=== PATIENT | female | born 1960 | race Caucasian/White ===

== ENCOUNTER 2017-11-07 23:04 | Emergency (ER) | payer MEDICARE, OTHER ==
[2017-11-08] MEDS ORDERED: ONDANSETRON 4 MG TAB.RAPDIS SL ONE (00:31)
[2017-11-08] MEDS ORDERED: HYDROCODONE/ACETAMINOPHEN 5-325 MG TABLET PO ONE (00:31)
--- NOTE | 2017-11-08 00:33 | ER Document Report ---
ED Medical Screen (RME) - General Chief Complaint: Flank Pain Stated Complaint: FLANK PAIN Time Seen by Provider: 11/08/17 00:31 Mode of Arrival: Ambulatory Information source: Patient TRAVEL OUTSIDE OF THE [place] IN LAST 30 DAYS: No - HPI Patient complains to provider of: Right flank pain Onset: Yesterday Notes: 11/08/17 00:32 Patient is a 57-year-old female presenting to the emergency room today complaining of right flank pain, with dysuria and hematuria, symptoms started yesterday, she has some nausea as well but no vomiting, has chronic diarrhea which has been unchanged in the last 24 hours, history of kidney stones with similar symptoms, patient has a history of cholecystectomy and appendectomy 11/08/17 00:32 RAPID MEDICAL EVALUATION DISCLOSURE I have seen this patient as part of a Rapid Medical Evaluation and, if applicable, placed any initially appropriate orders. The patient will be seen and fully evaluated, including a full history and physical exam, by a provider ( in Main ED or Fast Track) when a room becomes available. - Related Data Allergies/Adverse Reactions: prednisone Allergy (Verified 11/07/17 23:08) Physical Exam - Vital signs Vitals: Temp Pulse Resp BP Pulse Ox 98.0 F 77 18 130/77 H 97 11/07/17 23:34 11/07/17 23:34 11/07/17 23:34 11/07/17 23:34 11/07/17 23:34 Course - Vital Signs Vital signs: Temp Pulse Resp BP Pulse Ox 98.0 F 77 18 130/77 H 97 11/07/17 23:34 11/07/17 23:34 11/07/17 23:34 11/07/17 23:34 11/07/17 23:34
[2017-11-08 00:46] LABS: ABSOLUTE EOSINOPHILS # (AUTO) 0.2 10^3/uL (0.0-0.6); ABSOLUTE LYMPHOCYTES (AUTO) 2.3 10^3/uL (0.5-4.7); ABSOLUTE MONOCYTES (AUTO) 0.5 10^3/uL (0.1-1.4); ABSOLUTE NEUT (AUTO) 3.9 10^3/uL (1.7-8.2); BASOPHILS % (AUTO) 0.6 % (0-2); HEMATOCRIT 39.3 % (36.0-47.0); HEMOGLOBIN 12.8 g/dL (12.0-15.5); LYMPHOCYTES % (AUTO) 33.3 % (13-45); MEAN CORPUSCULAR HEMOGLOBIN 28.6 pg (27.0-33.4); MEAN CORPUSCULAR HGB CONC 32.5 g/dL (32.0-36.0); MEAN CORPUSCULAR VOLUME 88 fl (80-97); MONOCYTES % (AUTO) 7.7 % (3-13); PLATELET COUNT 265 10^3/uL (150-450); RED BLOOD COUNT 4.46 10^6/uL (3.72-5.28); SEGMENTED NEUTROPHILS % (AUTO) 55.4 % (42-78); TOTAL CELLS COUNTED % (AUTO) 100 %; WHITE BLOOD COUNT 7.1 10^3/uL (4.0-10.5)
--- NOTE | 2017-11-08 00:58 | ER Document Report ---
ED GI/ - General Chief Complaint: Flank Pain Stated Complaint: FLANK PAIN Time Seen by Provider: 11/08/17 00:31 Mode of Arrival: Ambulatory Notes: The patient is a 57-year-old female, past medical history kidney stones, history of cholecystectomy and appendectomy, presents with a dull pain in her right flank, dysuria and foul-smelling urine that started yesterday. Pain does not feel similar to her prior kidney stones. She is also having chronic diarrhea. She denies nausea, vomiting, fevers, rash, chest pain or shortness of breath. TRAVEL OUTSIDE OF THE [place] IN LAST 30 DAYS: No - Related Data Allergies/Adverse Reactions: prednisone Allergy (Verified 11/07/17 23:08) Past Medical History - General Information source: Patient - Social History Smoking Status: Unknown if Ever Smoked Family History: Reviewed & Not Pertinent Patient has suicidal ideation: No Patient has homicidal ideation: No Renal/ Medical History: Denies: Hx Peritoneal Dialysis Past Surgical History: Reports: Hx Appendectomy, Hx Cholecystectomy, Hx Gynecologic Surgery - ovarian cyst, Hx Orthopedic Surgery - left shoulder Review of Systems - Review of Systems Notes: REVIEW OF SYSTEMS: CONSTITUTIONAL: -fevers, -chills EENT: -eye pain, -difficulty swallowing, -nasal congestion CARDIOVASCULAR: -chest pain, -syncope. RESPIRATORY: -cough, -SOB GASTROINTESTINAL: -abdominal pain, -nausea, -vomiting, -diarrhea GENITOURINARY: +dysuria, +hematuria MUSCULOSKELETAL: +right flank pain, -neck pain SKIN: -rash or skin lesions. HEMATOLOGIC: -easy bruising or bleeding. LYMPHATIC: -swollen, enlarged glands. NEUROLOGICAL: -altered mental status or loss of consciousness, -headache, - neurologic symptoms PSYCHIATRIC: -anxiety, -depression. ALL OTHER SYSTEMS REVIEWED AND NEGATIVE. Physical Exam - Vital signs Vitals: Temp Pulse Resp BP Pulse Ox 98.0 F 77 18 130/77 H 97 11/07/17 23:34 11/07/17 23:34 11/07/17 23:34 11/07/17 23:34 11/07/17 23:34 - Notes Notes: PHYSICAL EXAMINATION: GENERAL: Well-appearing, well-nourished and in no acute distress. HEAD: Atraumatic, normocephalic. EYES: Pupils equal round and reactive to light, extraocular movements intact, sclera anicteric, conjunctiva are normal. ENT: nares patent, oropharynx clear without exudates. Moist mucous membranes. NECK: Normal range of motion, supple without lymphadenopathy LUNGS: Breath sounds clear to auscultation bilaterally and equal. No wheezes rales or rhonchi. HEART: Regular rate and rhythm without murmurs ABDOMEN: Soft, mild suprapubic tenderness, normoactive bowel sounds. No guarding, no rebound. No masses appreciated. BACK: Right CVA tenderness. EXTREMITIES: Normal range of motion, no pitting or edema. No cyanosis. NEUROLOGICAL: Cranial nerves grossly intact. Normal speech, normal gait. Normal sensory and motor exams. PSYCH: Normal mood, normal affect. SKIN: Warm, Dry, normal turgor, no rashes or lesions noted. Course - Re-evaluation Re-evalutation: Patient appears very well. She does have dysuria and right CVA tenderness with signs of infection on her urinalysis. Her CT shows multiple nonobstructing right renal stones, but symptoms are not consistent with renal colic at this time. We will begin her on Keflex and Pyridium for pyelonephritis and given very strict return precautions. She understands. - Vital Signs Vital signs: Temp Pulse Resp BP Pulse Ox 98.0 F 77 18 130/77 H 97 11/07/17 23:34 11/07/17 23:34 11/07/17 23:34 11/07/17 23:34 11/07/17 23:34 - Laboratory Result Diagrams: 11/07/17 23:58 11/07/17 23:58 Laboratory results interpreted by me: 11/07/17 23:58 Urine Blood SMALL H Urine Nitrite POSITIVE H Urine Urobilinogen 2.0 H Ur Leukocyte Esterase SMALL H - Diagnostic Test Radiology reviewed: Image reviewed, Reports reviewed Radiology results interpreted by me: CT A/P: Nonobstructing right-sided nephrolithiasis. Fat-containing ventral hernia. Discharge - Discharge Clinical Impression: Right flank pain, Pyelonephritis Condition: Stable Disposition: HOME, SELF-CARE Additional Instructions: PYELONEPHRITIS: Your evaluation shows evidence of pyelonephritis. This is an infection in the kidney. Typical symptoms are fever, pain in the flank, pain on urination, and frequent urination. Many cases of pyelonephritis can be treated at home. Hospital care may be necessary for patients who are very ill, or elderly or . Pyelonephritis is treated with antibiotics. Be sure to take all the medication as prescribed. Drink plenty of liquids (about three quarts per day) . You may take acetaminophen for fever. You should feel significantly improved within two days. You should have a recheck of your urine in about one week to insure that the infection is gone. Return for a re-examination if your symptoms worsen in any way -- such as high fever, shaking chills, severe weakness or dizziness, severe pain, or inability to pass your urine. ANTIBIOTIC THERAPY: You have been given an antibiotic prescription. It's important that you take all the medication, unless instructed otherwise by your physician. Failure to complete the entire course can result in relapse of your condition. Common side effects of antibiotics include nausea, intestinal cramping, or diarrhea. Women may develop vaginal yeast infections, and babies can get yeast (thrush) in the mouth following the use of antibiotics. Contact your physician if you develop significant side effects from this medication. Allergy to this antibiotic can result in hives, wheezing, faintness, or itching. If symptoms of allergy occur, stop the medication and call the doctor. CEPHALEXIN: The antibiotic you've been prescribed is a member of the cephalosporin class. This type of antibiotic covers a wide variety of infections, including those of the skin, lungs, and urinary tract. It's useful for staph infections. This antibiotic is slightly similar to the penicillin family. In rare cases , a person who is allergic to penicillin will also be allergic to this medication. If you have had a severe allergic reaction to penicillin, and have not taken this antibiotic since that time, notify your doctor. Antibiotics which cover many germs ("broad spectrum" antibiotics) are more likely to cause diarrhea or "yeast" infections. Women prone to vaginal yeast problems may suffer an attack after taking this antibiotic. In infants, oral thrush (white spots "stuck" on the cheek) or yeast diaper rash may result. See your doctor if these problems occur. Call at once if you develop itching, hives , shortness of breath, or lightheadedness. USE OF ACETAMINOPHEN (Tylenol): Acetaminophen may be taken for pain relief or fever control. It's much safer than aspirin, offering a wider range of "safe" dosages. It is safe during . Some brand names are Tylenol, Panadol, Datril, Anacin 3, Tempra, and Liquiprin. Acetaminophen can be repeated every four hours. The following are maximum recommended dosages: >89 pounds or adults 650 mg to 900 mg FOLLOW-UP CARE: If you have been referred to a physician for follow-up care, call the physician s office for an appointment as you were instructed or within the next two days. If you experience worsening or a significant change in your symptoms, notify the physician immediately or return to the Emergency Department at any time for re-evaluation. Prescriptions: Cephalexin Monohydrate [Keflex 500 mg Capsule] 500 mg PO TID 7 Days capsule Phenazopyridine HCl [Pyridium 200 mg Tablet] 200 mg PO TID #15 tablet Forms: Elevated Blood Pressure Referrals: LEIGH ESPINOZA MD [COMMUNITY BASED STAFF] - Follow up as needed
[2017-11-08 01:00] LABS: ALANINE AMINOTRANSFERASE 22 U/L (9-52); ALBUMIN 3.9 g/dL (3.5-5.0); ALKALINE PHOSPHATASE 93 U/L (38-126); ANION GAP 11 (5-19); ASPARTATE AMINO TRANSFERASE 18 U/L (14-36); BILIRUBIN,DIRECT 0.2 mg/dL (0.0-0.4); BILIRUBIN,TOTAL 0.7 mg/dL (0.2-1.3); BLOOD UREA NITROGEN 12 mg/dL (7-20); CALCIUM 9.2 mg/dL (8.4-10.2); CARBON DIOXIDE 27 mmol/L (22-30); CHLORIDE 106 mmol/L (98-107); GLUCOSE 85 mg/dL (75-110); LIPASE 137.2 U/L (23-300); POTASSIUM 3.8 mmol/L (3.6-5.0); SODIUM 143.5 mmol/L (137-145); TOTAL PROTEIN 7.2 g/dL (6.3-8.2)
[2017-11-08 01:20] LABS: APPEARANCE,URINE SLIGHTLY-CLOUDY; BILIRUBIN,URINE NEGATIVE (NEGATIVE); COLOR,URINE AMBER; GLUCOSE, URINE NEGATIVE (NEGATIVE); KETONES,URINE NEGATIVE (NEGATIVE); LEUKOCYTE ESTERASE,URINE SMALL (NEGATIVE); NITRITE,URINE POSITIVE (NEGATIVE); PROTEIN,URINE NEGATIVE (NEGATIVE); URINE SPECIFIC GRAVITY 1.025
--- NOTE | 2017-11-08 01:32 | RADIOLOGY REPORT (SQ) ---
EXAM DESCRIPTION: CT ABDOMEN WITHOUT IV CONTRAST COMPLETED DATE/TME: 11/08/2017 00:33 CLINICAL HISTORY: 57 years, Female, flank pain COMPARISON: None. TECHNIQUE: Axial CT images of the abdomen and pelvis were obtained without contrast. Sagittal and coronal reformats were performed. DL 1001 Images stored on PACS. All CT scanners at this facility use dose modulation, iterative reconstruction, and/or weight based dosing when appropriate to reduce radiation dose to as low as reasonably achievable (ALARA). [facility]: Dose Right [facility]: CareDose [facility]: Dose Right [facility]: Teradose 4D [facility]: Smart Technologies LIMITATIONS: None. FINDINGS: Lung bases are clear. Cholecystectomy. The liver, pancreas, spleen, and adrenal glands are unremarkable. There is a 2 mm nonobstructing stone along the lower pole of the right kidney. There is a 1.7 cm cyst along the upper pole of the right kidney. There is no evidence of hydronephrosis or hydroureter bilaterally. There is no evidence of nephrolithiasis on the left. There is no intraperitoneal free air or fluid. There is no lymphadenopathy. There are mild atherosclerotic calcifications of the abdominal aorta. There is a fat-containing ventral hernia. There are postsurgical changes to the stomach. The small bowel is unremarkable. The appendix is not uniquely identified, however there are no inflammatory changes within the right lower quadrant. The colon appears unremarkable. The uterus and urinary bladder are unremarkable. There are no lytic or blastic bone lesions IMPRESSION: Nonobstructing right-sided nephrolithiasis Fat-containing ventral hernia. TECHNICAL DOCUMENTATION: Quality ID # 436: Final reports with documentation of one or more dose reduction techniques (e.g., Automated exposure control, adjustment of the mA and/or kV according to patient size, use of iterative reconstruction technique) 2010 [employer]- All Rights Reserved
[2017-11-08] MEDS ORDERED: CEPHALEXIN 500 MG CAPSULE PO ONE (01:40)
[2017-11-08 01:53] VITALS: BP 113/76
== END 2017-11-08 01:57 | disposition home or self-care (01) ==
LOC: ER 23:04
DX: N12 Tubulo-interstitial nephritis, not specified as acute or chronic (principal); N20.0 Calculus of kidney; K43.9 Ventral hernia without obstruction or gangrene; R19.7 Diarrhea, unspecified; Z90.49 Acquired absence of other specified parts of digestive tract; Z88.8 Allergy status to other drugs, medicaments and biological substances
CPT/HCPCS: 99284; 36415; 83690; 85025; 80053; 81001; 76380; A9270 ×3; S0119

== ENCOUNTER → 2017-11-12 | Outpatient (CLI) | payer MEDICARE, OTHER ==
--- NOTE | 2017-11-12 15:35 | WOMENS IMAGING REPORT ---
EXAM DESCRIPTION: 3D SCREENING MAMMO BILAT COMPLETED DATE/TIME: 11/12/2017 2:58 pm REASON FOR STUDY: BILATERAL SCREENING MAMMO 3D /Z12.31 Z12.31 ENCNTR SCREEN MAMMOGRAM FOR MALIGNANT NEOPLASM OF [place] COMPARISON: None. TECHNIQUE: Standard craniocaudal and mediolateral oblique views of each breast recorded using digita l acquisition and breast tomosynthesis. LIMITATIONS: None. FINDINGS: No masses, calcifications or architectural distortion. No areas of suspicion. Read with the assistance of CAD. .[facility] - R2 Cenova Version 1.3 .[facility] - R2 Cenova Version 1.3 .[facility] - R2 Cenova Version 2.4 .[facility] [place] - R2 Cenova Version 2.4 .[facility] - R2 Auto Brake Mechanic Version 9.2 IMPRESSION: NORMAL MAMMOGRAM. BIRADS 1. BREAST DENSITY: b. There are scattered areas of fibroglandular density. BIRAD: 1 NEGATIVE RECOMMENDATION: ROUTINE SCREENING COMMENT: The patient has been notified of the results by letter per SA requirements. Additional no tification policies are in place for contacting patient with suspicious or incomplete findings. Quality ID #225: The [employer] recommends an annual screening mammogram for women aged 40 years or over. This facility utilizes a reminder system to ensure that all patients receive reminder letters, and/or direct phone calls for appointments. This includes reminders for routine scr eening mammograms, diagnostic mammograms, or other Breast Imaging Interventions when appropriate. Th is patient will be placed in the appropriate reminder system. The [employer] (ACR) has developed recommendations for screening MRI of the breast s in certain patient populations, to be used in conjunction with mammography. Breast MRI surveillanc e may be appropriate for women with more than 20% lifetime risk of developing breast cancer as deter mined by genetic testing, significant family history of the disease, or history of mantle radiation f or Hodgkins Disease. ACR Practice Guidelines 2008. DBT Technology DBT is a type of tomographic mammography. With conventional mammography, overlapping breast tissue ma y make lesions difficult to detect, even with good compression. DBT uses an x-ray tube that rotates a round the breast, taking images at different angles. These images are then combined to create thin sl ices of the breast that the radiologist can view as a 3D reconstruction. The Humansized unit can perform full-field digital mammograms (2D imaging); or DBT (3D imaging); or both, in a combination mode that quickly performs both the mammogram and the tomosynthesis scan while the breast is still compressed. PQRS 6045F: Fluoroscopic imaging is not utilized for breast tomosynthesis. TECHNICAL DOCUMENTATION: FINDING NUMBER: (1) ASSESSMENT: (1) JOB ID: [id number] [employer]- All Rights Reserved Reading location - IP/workstation name: [facility]
== END ==
LOC: WI 13:45
PROVIDERS: ATTEND Family Medicine
DX: Z12.31 Encounter for screening mammogram for malignant neoplasm of breast (principal)
CPT/HCPCS: 77063; 77067

== ENCOUNTER → 2017-11-12 | Outpatient (CLI) | payer MEDICARE, OTHER ==
[2017-11-12 15:17] LABS: HEMATOCRIT 35.4 % (36.0-47.0); HEMOGLOBIN 11.6 g/dL (12.0-15.5); MEAN CORPUSCULAR HEMOGLOBIN 28.6 pg (27.0-33.4); MEAN CORPUSCULAR HGB CONC 32.9 g/dL (32.0-36.0); MEAN CORPUSCULAR VOLUME 87 fl (80-97); PLATELET COUNT 281 10^3/uL (150-450); RED BLOOD COUNT 4.07 10^6/uL (3.72-5.28); WHITE BLOOD COUNT 4.9 10^3/uL (4.0-10.5)
[2017-11-12 15:38] LABS: ALANINE AMINOTRANSFERASE 22 U/L (9-52); ALBUMIN 3.6 g/dL (3.5-5.0); ALKALINE PHOSPHATASE 96 U/L (38-126); ANION GAP 12 (5-19); ASPARTATE AMINO TRANSFERASE 19 U/L (14-36); BILIRUBIN,TOTAL 0.7 mg/dL (0.2-1.3); BLOOD UREA NITROGEN 10 mg/dL (7-20); CALCIUM 8.8 mg/dL (8.4-10.2); CARBON DIOXIDE 26 mmol/L (22-30); CHLORIDE 104 mmol/L (98-107); CHOLESTEROL 170.14 mg/dL (0-200); GLUCOSE 90 mg/dL (75-110); IRON 53.5 ug/dL (37-170); POTASSIUM 4.1 mmol/L (3.6-5.0); SODIUM 142.4 mmol/L (137-145); TOTAL PROTEIN 6.6 g/dL (6.3-8.2); TRIGLYCERIDES 86 mg/dL (<150)
[2017-11-12 15:49] LABS: DIRECT LDL 92 mg/dL (<100)
[2017-11-16 08:52] LABS: ZINC PLASMA OR SERUM 59 ug/dL (56-134)
== END ==
LOC: OD 14:22
PROVIDERS: ATTEND Family Medicine
DX: E03.8 Other specified hypothyroidism (principal); Z98.84 Bariatric surgery status
CPT/HCPCS: 36415; 80053; 80061; 82306; 82525; 82607; 83036; 83540; 84255; 84443; 84630; 85027

== ENCOUNTER → 2017-12-10 | Outpatient (CLI) | payer MEDICARE, OTHER ==
[2017-12-10 13:51] LABS: HEMATOCRIT 40.7 % (36.0-47.0); HEMOGLOBIN 13.6 g/dL (12.0-15.5); MEAN CORPUSCULAR HEMOGLOBIN 28.8 pg (27.0-33.4); MEAN CORPUSCULAR HGB CONC 33.4 g/dL (32.0-36.0); MEAN CORPUSCULAR VOLUME 86 fl (80-97); PLATELET COUNT 247 10^3/uL (150-450); RED BLOOD COUNT 4.72 10^6/uL (3.72-5.28); RED CELL DISTRIBUTION WIDTH 14.5 % (11.5-14.0); WHITE BLOOD COUNT 9.2 10^3/uL (4.0-10.5)
[2017-12-10 14:20] LABS: ABSOLUTE LYMPHOCYTES# (MANUAL) 2.9 10^3/uL (0.5-4.7); ABSOLUTE MONOCYTES # (MANUAL) 0.2 10^3/uL (0.1-1.4); ABSOLUTE NEUTROPHILS# (MANUAL) 3.2 10^3/uL (1.7-8.2); BASOPHILS % (MANUAL) 1 % (0-2); LYMPHOCYTES % (MANUAL) 32 % (13-45); MONOCYTES % (MANUAL) 2 % (3-13); SEGMENTED NEUTROPHILS % (MAN) 35 % (42-78); TOTAL CELLS COUNTED 100
[2017-12-10 14:21] LABS: EOSINOPHILS % (MANUAL) 30 % (0-6); OVALOCYTES SLIGHT; PLATELET COMMENT ADEQUATE; POIKILOCYTOSIS SLIGHT
[2017-12-10 14:26] LABS: ALANINE AMINOTRANSFERASE 24 U/L (9-52); ALBUMIN 3.9 g/dL (3.5-5.0); ALKALINE PHOSPHATASE 96 U/L (38-126); ANION GAP 11 (5-19); ASPARTATE AMINO TRANSFERASE 25 U/L (14-36); BILIRUBIN,DIRECT 0.3 mg/dL (0.0-0.4); BILIRUBIN,TOTAL 0.7 mg/dL (0.2-1.3); BLOOD UREA NITROGEN 9 mg/dL (7-20); CALCIUM 9.1 mg/dL (8.4-10.2); CARBON DIOXIDE 27 mmol/L (22-30); CHLORIDE 105 mmol/L (98-107); GLUCOSE 89 mg/dL (75-110); POTASSIUM 4.1 mmol/L (3.6-5.0); SODIUM 142.8 mmol/L (137-145); TOTAL PROTEIN 7.3 g/dL (6.3-8.2)
[2017-12-10 14:28] LABS: ERYTHROCYTE SEDIMENTATION RATE 36 mm/hr (0-30)
[2017-12-10 14:38] LABS: C-REACTIVE PROTEIN < 5.0 mg/L (<10.0)
[2017-12-13 14:20] LABS: PATH REVIEW PATHOLOGIST REVIEWED
== END ==
LOC: OD 13:05
PROVIDERS: ATTEND Family Medicine
DX: K52.9 Noninfective gastroenteritis and colitis, unspecified (principal)
CPT/HCPCS: 36415; 80053; 82272; 84443; 85025; 85652; 86140; 87624; 88142

== ENCOUNTER → 2018-01-10 | Outpatient (CLI) | payer MEDICARE, MEDICAID ==
[2018-01-10 12:41] LABS: AMYLASE 45 U/L (30-110); ANION GAP 7 (5-19); BLOOD UREA NITROGEN 11 mg/dL (7-20); CALCIUM 8.9 mg/dL (8.4-10.2); CARBON DIOXIDE 25 mmol/L (22-30); CHLORIDE 107 mmol/L (98-107); GLUCOSE 90 mg/dL (75-110); LIPASE 141.7 U/L (23-300); POTASSIUM 4.4 mmol/L (3.6-5.0); SODIUM 139.2 mmol/L (137-145)
== END ==
LOC: OD 10:40
PROVIDERS: ATTEND Family Medicine Geriatric Medicine
DX: R10.13 Epigastric pain (principal)
CPT/HCPCS: 36415; 80048; 82150; 83690

== ENCOUNTER 2018-03-15 08:28 | Emergency (ER) | payer MEDICARE, MEDICAID ==
[2018-03-15] MEDS ORDERED: NORMAL SALINE 1000 ML 1,000 ML IV ONE (09:29)
[2018-03-15 09:46] LABS: ABSOLUTE BASOPHILS # (AUTO) 0.1 10^3/uL (0.0-0.2); ABSOLUTE EOSINOPHILS # (AUTO) 0.3 10^3/uL (0.0-0.6); ABSOLUTE MONOCYTES (AUTO) 0.4 10^3/uL (0.1-1.4); ABSOLUTE NEUT (AUTO) 2.9 10^3/uL (1.7-8.2); BASOPHILS % (AUTO) 1.2 % (0-2); EOSINOPHILS % (AUTO) 4.8 % (0-6); HEMATOCRIT 42.5 % (36.0-47.0); HEMOGLOBIN 14.1 g/dL (12.0-15.5); LYMPHOCYTES % (AUTO) 35.4 % (13-45); MEAN CORPUSCULAR HEMOGLOBIN 29.3 pg (27.0-33.4); MEAN CORPUSCULAR HGB CONC 33.1 g/dL (32.0-36.0); MEAN CORPUSCULAR VOLUME 89 fl (80-97); MONOCYTES % (AUTO) 7.3 % (3-13); PLATELET COUNT 302 10^3/uL (150-450); RED CELL DISTRIBUTION WIDTH 16.2 % (11.5-14.0); SEGMENTED NEUTROPHILS % (AUTO) 51.3 % (42-78); TOTAL CELLS COUNTED % (AUTO) 100 %; WHITE BLOOD COUNT 5.6 10^3/uL (4.0-10.5)
[2018-03-15 09:50] LABS: APPEARANCE,URINE SLIGHTLY-CLOUDY; BILIRUBIN,URINE NEGATIVE (NEGATIVE); COLOR,URINE STRAW; GLUCOSE, URINE NEGATIVE (NEGATIVE); KETONES,URINE NEGATIVE (NEGATIVE); LEUKOCYTE ESTERASE,URINE NEGATIVE (NEGATIVE); NITRITE,URINE NEGATIVE (NEGATIVE); PROTEIN,URINE NEGATIVE (NEGATIVE); URINE SPECIFIC GRAVITY 1.004; UROBILINOGEN,URINE NEGATIVE mg/dL (<2.0)
[2018-03-15 10:11] LABS: ALANINE AMINOTRANSFERASE 17 U/L (9-52); ALBUMIN 4.3 g/dL (3.5-5.0); ALKALINE PHOSPHATASE 103 U/L (38-126); ANION GAP 10 (5-19); ASPARTATE AMINO TRANSFERASE 25 U/L (14-36); BILIRUBIN,DIRECT 0.3 mg/dL (0.0-0.4); BILIRUBIN,TOTAL 0.8 mg/dL (0.2-1.3); BLOOD UREA NITROGEN 14 mg/dL (7-20); CALCIUM 9.5 mg/dL (8.4-10.2); CARBON DIOXIDE 27 mmol/L (22-30); CHLORIDE 105 mmol/L (98-107); GLUCOSE 99 mg/dL (75-110); POTASSIUM 4.4 mmol/L (3.6-5.0); SODIUM 142.3 mmol/L (137-145); TOTAL PROTEIN 7.9 g/dL (6.3-8.2)
[2018-03-15] MEDS ORDERED: OXYCODONE-ACETAMINOPHEN 5-325 MG TABLET PO ONE (10:50)
[2018-03-15] MEDS ORDERED: ACYCLOVIR 800 MG TABLET PO ONE (10:54)
--- NOTE | 2018-03-15 10:59 | ER Document Report ---
ED General - General Chief Complaint: Flank Pain Stated Complaint: BACK PAIN Time Seen by Provider: 03/15/18 09:36 Mode of Arrival: Ambulatory Information source: Patient Notes: Patient is a 58-year-old female who presents with chief complaint of right- sided back pain over the last 5 days. Patient reports associated vomiting x2. Denies any dysuria or fever. Patient states that in the area of her back that is hurting has severe pain even with very mild touch. Patient denies any trauma to the area. Denies any bowel incontinence. Reports she is able to urinate without difficulty. TRAVEL OUTSIDE OF THE [place] IN LAST 30 DAYS: No - Related Data Allergies/Adverse Reactions: Penicillins Allergy (Verified 03/15/18 08:32) prednisone Allergy (Verified 11/07/17 23:08) Past Medical History - General Information source: Patient - Social History Smoking Status: Never Smoker Drug Abuse: None Lives with: Alone Family History: Reviewed & Not Pertinent Patient has suicidal ideation: No Patient has homicidal ideation: No - Medical History Medical History: Negative Renal/ Medical History: Denies: Hx Peritoneal Dialysis Past Surgical History: Reports: Hx Appendectomy, Hx Cholecystectomy, Hx Gynecologic Surgery - ovarian cyst, Hx Orthopedic Surgery - left shoulder - Immunizations Immunizations up to date: Yes Review of Systems - Review of Systems Gastrointestinal: Vomiting - x2 Musculoskeletal: Back pain Physical Exam - Vital signs Vitals: Temp Pulse Resp BP Pulse Ox 97.3 F 64 20 125/76 98 03/15/18 08:34 03/15/18 08:34 03/15/18 08:34 03/15/18 08:34 03/15/18 08:34 - Notes Notes: PHYSICAL EXAMINATION: GENERAL: Well-appearing, well-nourished and in no acute distress. HEAD: Atraumatic, normocephalic. EYES: Pupils equal round and reactive to light, extraocular movements intact, conjunctiva are normal. ENT: Nares patent, oropharynx clear without exudates. Moist mucous membranes. NECK: Normal range of motion, supple without lymphadenopathy LUNGS: Breath sounds clear to auscultation bilaterally and equal. No wheezes rales or rhonchi. HEART: Regular rate and rhythm without murmurs ABDOMEN: Soft, nontender, nondistended abdomen. No guarding, no rebound. No masses appreciated. Female : No CVA tenderness. Musculoskeletal: Normal range of motion, no pitting or edema. No cyanosis. NEUROLOGICAL: Cranial nerves grossly intact. Normal speech, normal gait. Normal sensory, motor exams PSYCH: Normal mood, normal affect. SKIN: Warm, Dry, normal turgor, no rashes or lesions noted. Vesicular rash noted to right lumbar spine. Course - Re-evaluation Re-evalutation: CBC, CMP and urinalysis are unremarkable. Patient's physical examination is consistent with shingles outbreak. Patient will be placed on acyclovir and discharged home in stable condition. - Vital Signs Vital signs: Temp Pulse Resp BP Pulse Ox 97.3 F 64 20 125/76 98 03/15/18 08:34 03/15/18 08:34 03/15/18 08:34 03/15/18 08:34 03/15/18 08:34 - Laboratory Result Diagrams: 03/15/18 09:26 03/15/18 09:26 Laboratory results interpreted by me: 03/15/18 09:26 RDW 16.2 H Discharge - Discharge Clinical Impression: Shingles outbreak Qualifiers: Herpes zoster complications: without complications Qualified Code(s): B02.9 - Zoster without complications Condition: Stable Disposition: HOME, SELF-CARE Additional Instructions: Shingles You have shingles. Shingles is caused by the chicken pox virus, The virus has been surviving dormant in a nerve cell since you had chicken pox years ago. The virus has spread down a nerve root to reach the skin. Typically, an band-like area of pain and skin sensitivity develops, then small blisters erupt in the area. Shingles lasts two or three weeks, but sometimes leaves persistent pain. You are contagious -- you can give children chicken pox. But you can't give anyone shingles. Antiviral medicines (such as acyclovir or famciclovir) can help, but the rash usually worsens for about a week. Pain medication is often given if the area hurts. Antihistamines such as Benadryl may be necessary for itching if it does not respond to soda baths and calamine lotion. Sometimes cortisone medicine or nerve-block shots are necessary if pain is severe. If the area remains severely painful as the sores heal, or if you suspect an infection developing in the sores, see your doctor. Prescriptions: Acyclovir [Zovirax 800 mg Tablet] 800 mg PO 5XD #35 tab Forms: Return to Work Referrals: LEIGH ESPINOZA MD [Primary Care Provider] - Follow up as needed
[2018-03-15 11:25] VITALS: BP 120/78
== END 2018-03-15 11:32 | disposition home or self-care (01) ==
LOC: ER 08:28
DX: B02.9 Zoster without complications (principal); R10.9 Unspecified abdominal pain; R11.10 Vomiting, unspecified; Z88.0 Allergy status to penicillin; Z90.49 Acquired absence of other specified parts of digestive tract
CPT/HCPCS: 99284; 96360; 96361; 36415; 85025; 80053; 81001; A9270 ×2; J7030; J3490

== ENCOUNTER 2018-07-20 09:11 | Emergency (ER) | payer MEDICARE, MEDICAID ==
[2018-07-20 09:16] VITALS: BP 147/83
--- NOTE | 2018-07-20 09:48 | ER Document Report ---
ED General - General Chief Complaint: Post Surgical Bleeding Stated Complaint: NAUSEA Time Seen by Provider: 07/20/18 09:32 Primary Care Provider: LEIGH ESPINOZA MD [Primary Care Provider] - Follow up as needed Information source: Patient, Relative, [facility] Records Notes: This 58-year-old female patient comes emergency room for drainage from an abdominal incision. She had a ventral hernia repaired with mesh 2 weeks ago, and the wound was stapled closed. She reports she is on her second pad right now, and it has been a blood-tinged fluid that is coming out. There is no fever. There is no redness along the wound edges. TRAVEL OUTSIDE OF THE [place] IN LAST 30 DAYS: No - Related Data Allergies/Adverse Reactions: Penicillins Allergy (Verified 07/20/18 09:12) prednisone Allergy (Verified 07/20/18 09:12) Past Medical History - General Information source: Patient, Relative, [facility] Records - Social History Smoking Status: Never Smoker Cigarette use (# per day): No Chew tobacco use (# tins/day): No Smoking Education Provided: No Frequency of alcohol use: None Drug Abuse: None Occupation: Unemployed Lives with: Spouse/Significant other Family History: Reviewed & Not Pertinent Endocrine Medical History: Reports: Hx Hypothyroidism Renal/ Medical History: Reports: Hx Kidney Stones Past Surgical History: Reports: Hx Appendectomy, Hx Cholecystectomy, Hx Gynecologic Surgery - ovarian cyst, Hx Orthopedic Surgery - left shoulder - Immunizations Immunizations up to date: Yes Review of Systems - Review of Systems Constitutional: No symptoms reported EENT: No symptoms reported Cardiovascular: No symptoms reported Respiratory: No symptoms reported Gastrointestinal: No symptoms reported Genitourinary: No symptoms reported Female Genitourinary: Post menopausal Musculoskeletal: No symptoms reported Skin: See HPI Hematologic/Lymphatic: No symptoms reported Neurological/Psychological: No symptoms reported Physical Exam - Vital signs Vitals: Temp Pulse Resp BP Pulse Ox 97.7 F 74 16 147/83 H 98 07/20/18 09:14 07/20/18 09:14 07/20/18 09:14 07/20/18 09:14 07/20/18 09:14 Interpretation: Normal - General General appearance: Appears well, Alert In distress: None - HEENT Head: Normocephalic, Atraumatic Eyes: Normal Pupils: PERRL - Respiratory Respiratory status: No respiratory distress Breath sounds: Normal - Cardiovascular Rhythm: Regular Heart sounds: Normal auscultation Murmur: No - Abdominal Inspection: Obese Distension: No distension Bowel sounds: Normal Tenderness: Other - There is an incision from below the umbilicus to the xiphoid region which has been closed with chris. There is evidence of serosanguineous leakage from the inferior aspect of the wound below the umbilicus region. There is no drainage at this time when I put pressure on the wound edges. There is no erythema along the wound edges. The patient does have padded with 4 x 4's and it that is moistened from what appears to be some serosanguineous fluid. - Back Back: Normal - Extremities General upper extremity: Normal inspection General lower extremity: Normal inspection - Neurological Neuro grossly intact: Yes - Psychological Associated symptoms: Normal affect, Normal mood Course - Re-evaluation Re-evalutation: 07/20/18 09:54 This was a benign physical exam. Patient was reassured that this drainage is a common occurrence after abdominal surgery on an obese patient. She is also reassured that this drainage has to occur and occasionally requires parts of the wound to be opened, but it appears in her case has adequately drained itself. - Vital Signs Vital signs: Temp Pulse Resp BP Pulse Ox 97.7 F 74 16 147/83 H 98 07/20/18 09:14 07/20/18 09:14 07/20/18 09:14 07/20/18 09:14 07/20/18 09:14 Discharge - Discharge Clinical Impression: Postoperative wound seroma Condition: Stable Disposition: HOME, SELF-CARE Additional Instructions: The bloody leakage from your abdominal wound is a common finding after that type of surgery. Fluid you are seeing is a mixture of old blood and serous fluid released from cut blood vessels and the injured adipose tissue. These collections usually find their way through the wound at a weak spot, drain themselves and need no other treatment. Occasionally these collections will persist and prevent the underlying wound from closing itself and will need to be drained by opening a portion of the incision. Continue to keep your incision clean. Use absorbent pads over the area that is leaking. Follow-up with your surgeon if you start to see any signs of infection. RETURN TO THE EMERGENCY ROOM IF ANY NEW OR WORSENING SYMPTOMS. Referrals: LEIGH ESPINOZA MD [Primary Care Provider] - Follow up as needed
== END 2018-07-20 10:00 | disposition home or self-care (01) ==
LOC: ER 09:11
DX: L76.34 Postprocedural seroma of skin and subcutaneous tissue following other procedure (principal); Y83.8 Other surgical procedures as the cause of abnormal reaction of the patient, or of later complication, without mention of misadventure at the time of the procedure; R11.0 Nausea; Z88.0 Allergy status to penicillin; Z88.8 Allergy status to other drugs, medicaments and biological substances
CPT/HCPCS: 99283